=== PATIENT | male | born 1990 | race Caucasian/White ===

== ENCOUNTER 2024-01-14 04:12 | Day surgery (SDC) | payer BC ==
[2024-01-12 13:07] VITALS: BMI 29.6
[2024-01-14] MEDS ORDERED: DEXAMETHASONE SOD PHOSPHATE 10 MG/1 ML VIAL ONE (07:15)
[2024-01-14] MEDS ORDERED: BUPIVACAINE HCL/PF 0.25% (2.5MG/ML) 10 ML VIAL ONE (07:15)
[2024-01-14] MEDS ORDERED: LIDOCAINE HCL/PF 1% SDV 5ML VIAL ONE (07:15)
[2024-01-14] MEDS: LIDOCAINE HCL 1% PRESERVATIVE FREE - 30ML VIAL IJ ONE (09:35)
[2024-01-14] MEDS: IOHEXOL 180 MG/1 ML ML IJ ONE (09:35)
[2024-01-14] MEDS: DEXAMETHASONE SOD PHOSPHATE 10 MG/1 ML VIAL IVPUSH ONE (09:36)
[2024-01-14 10:01] VITALS: RESP 18
[2024-01-14 10:27] VITALS: BP 125/71; PULSE 69; TEMP 96.9
[2024-01-14] MEDS ORDERED: ACETAMINOPHEN 500 MG TABLET (FP) PO PRN (12:13)
== END 2024-01-14 10:20 | disposition home or self-care (01) ==
LOC: JASU-SURG 04:12
PROVIDERS: ATTEND Pain Medicine Pain Medicine
PROC: 3E0R3BZ Introduction of Anesthetic Agent into Spinal Canal, Percutaneous Approach (ICD-10-PCS; 2024-01-14)
PROC: 3E0R33Z Introduction of Anti-inflammatory into Spinal Canal, Percutaneous Approach (ICD-10-PCS; principal; 2024-01-14 09:15)
DX: M54.16 Radiculopathy, lumbar region (principal)
CPT/HCPCS: 76000-TC-FY; J1100